=== PATIENT | male | born 1975 | race Caucasian/White ===

== ENCOUNTER 2021-03-17 15:09 | Inpatient (IN) | payer OTHER ==
[2021-03-17] MEDS ORDERED: HYDROcodone/APAP 5-325MG 1 EACH TAB PO STA (16:28)
[2021-03-17] MEDS ORDERED: SODIUM CHLORIDE 0.9% 1,000 ML IV ONE (16:29)
[2021-03-17 16:59] LABS: Anisocytosis Slight; Basophils # (A) 0.1 k/uL (0-0.2); Basophils % (A) 1 %; Eosinophils # (A) 0.2 k/uL (0-0.7); Eosinophils % (A) 2 %; HCT 43.5 % (39.0-53.0); HGB 14.6 gm/dL (13.0-17.5); Lymphocytes # (A) 2.1 k/uL (1.0-4.8); Lymphocytes % (A) 27 %; MCH 28.6 pg (25.0-35.0); MCHC 33.5 g/dL (31.0-37.0); MCV 85.4 fL (80.0-100.0); Mean Platelet Volume 7.5; Monocytes # (A) 0.4 k/uL (0-1.0); Monocytes % (A) 5 %; Neutrophils # (A) 5.2 k/uL (1.3-7.7); Neutrophils % (A) 65 %; Platelet Count 202 k/uL (150-450); RBC 5.09 m/uL (4.30-5.90); RDW 17.9 % (11.5-15.5)
[2021-03-17 17:15] LABS: ALT 19 U/L (4-49); AST 55 U/L (17-59); African American GFR (CKD) >90 (>60 ml/min/1.73 sqM); Albumin 4.3 g/dL (3.5-5.0); Alkaline Phosphatase 200 U/L (38-126); Anion Gap 13 mmol/L; Blood Urea Nitrogen 6 mg/dL (9-20); Calcium 9.3 mg/dL (8.4-10.2); Carbon Dioxide 26 mmol/L (22-30); Chloride 103 mmol/L (98-107); Glucose 107 mg/dL (74-99); Non-African American GFR(CKD) >90 (>60 ml/min/1.73 sqM); Potassium 4.4 mmol/L (3.5-5.1); Sodium 142 mmol/L (137-145); Total Bilirubin 0.4 mg/dL (0.2-1.3); Total Protein 8.2 g/dL (6.3-8.2)
[2021-03-17 17:35] LABS: Alcohol 376 mg/dL
[2021-03-17] MEDS ORDERED: ONDANSETRON 4 MG/2 ML VIAL IVP PRN (17:53)
[2021-03-17] MEDS ORDERED: NALOXONE 0.4 MG/ML 1 ML VIAL IV PRN ×2 (17:53→18:07)
--- NOTE | 2021-03-17 18:01 | ED ---
Alcohol HPI - General Chief Complaint: Alcohol Stated Complaint: ETOH/Pain Time Seen by Provider: 03/17/21 15:20 Source: patient, EMS, RN notes reviewed Mode of arrival: EMS Limitations: altered mental status - History of Present Illness Initial Comments: 45-year-old white male presents to the emergency room after trying to get into [facility] for alcohol detox, being turned away with alcohol level of 0.19. Patient states he normally drinks 3 fifths of vodka a day. States his last drink was this morning. Patient c/o Chronic Pain. States 2 Weeks Ago He Fell Hitting His Head, sustaining a Laceration to forehead, Was Repaired with Glue but Cannot Remember Which Hospital He Was at. He Also Sustained a Right Foot Injury Told Was Bruised. There Is Some Bruising Noted to the top of his foot. Patient initially stated that he does have seizures when he tries to detox but during reevaluation patient states he has never had seizures. MD Complaint: alcohol intoxication (Intoxicated), desires rehab Last Drink: unknown (stated last night but told nurse this morning) Recent Trauma: No Associated Symptoms: other (Chronic pain right foot) Treatments Prior to Arrival: none Chronic Alcohol Use: Yes (3 fifth's a day of vodka) - Related Data Home Medications Medication Instructions Recorded Confirmed No Known Home Medications 03/17/21 03/17/21 Allergies Allergy/AdvReac Type Severity Reaction Status Date / Time No Known Allergies Allergy Verified 03/17/21 16:42 Review of Systems ROS Statement: Those systems with pertinent positive or pertinent negative responses have been documented in the HPI. ROS Other: All systems not noted in ROS Statement are negative. Past Medical History Additional Past Medical History / Comment(s): Right Foot injury 03/02/21 History of Any Multi-Drug Resistant Organisms: None Reported Additional Past Surgical History / Comment(s): hx of chest tube Past Psychological History: PTSD Smoking Status: Current every day smoker Past Alcohol Use History: Abuse, Daily, Heavy Past Drug Use History: Marijuana General Exam Limitations: altered mental status (Acute alcohol intoxication) General appearance: alert, in no apparent distress, appears intoxicated Head exam: Present: atraumatic, normocephalic, normal inspection Eye exam: Present: normal appearance, PERRL, EOMI. Absent: scleral icterus, conjunctival injection, periorbital swelling ENT exam: Present: normal exam, normal oropharynx, mucous membranes moist Neck exam: Present: normal inspection, full ROM. Absent: tenderness, meningismus, lymphadenopathy, thyromegaly Respiratory exam: Present: normal lung sounds bilaterally, chest wall tenderness (Left lower anterior rib deformity). Absent: respiratory distress, wheezes, rales, rhonchi, stridor, decreased breath sounds Cardiovascular Exam: Present: regular rate, normal rhythm, normal heart sounds. Absent: systolic murmur, diastolic murmur, rubs, gallop, clicks GI/Abdominal exam: Present: soft, normal bowel sounds. Absent: distended, tenderness, guarding, rebound, rigid, mass, pulsatile mass Rectal exam: Present: deferred Extremities exam: Present: normal inspection, full ROM, normal capillary refill. Absent: tenderness, pedal edema, joint swelling, calf tenderness Right Foot/Toe exam: Present: tenderness, ecchymosis. Absent: full ROM, swelling, abrasion, laceration Back exam: Present: normal inspection, full ROM. Absent: tenderness, CVA tenderness (R), CVA tenderness (L), muscle spasm, rash noted Neurological exam: Present: alert, oriented X3, CN II-XII intact Psychiatric exam: Present: normal affect, normal mood Skin exam: Present: warm, dry, intact, normal color. Absent: rash, cyanosis, diaphoretic, mottled Course Vital Signs 03/17/21 15:12 Temperature 97.4 F L Pulse Rate 84 Respiratory 18 Rate Blood Pressure 122/98 O2 Sat by Pulse 98 Oximetry Procedures - Lynch Protocol (Time Out) Nurse: Kostas Granados Medical Decision Making - Medical Decision Making Patient with alcohol level .376, other labs are within limits. Patient will be admitted for alcohol intoxication. Case discussed with Dr. Wells who is agreeable. - Lab Data Result diagrams: 03/17/21 16:40 03/17/21 16:40 Lab Results 03/17/21 03/17/21 Range/Units 16:40 16:40 WBC 8.0 (3.8-10.6) k/uL RBC 5.09 (4.30-5.90) m/uL Hgb 14.6 (13.0-17.5) gm/dL Hct 43.5 (39.0-53.0) % MCV 85.4 (80.0-100.0) fL MCH 28.6 (25.0-35.0) pg MCHC 33.5 (31.0-37.0) g/dL RDW 17.9 H (11.5-15.5) % Plt Count 202 (150-450) k/uL MPV 7.5 Neutrophils % 65 % Lymphocytes % 27 % Monocytes % 5 % Eosinophils % 2 % Basophils % 1 % Neutrophils # 5.2 (1.3-7.7) k/uL Lymphocytes # 2.1 (1.0-4.8) k/uL Monocytes # 0.4 (0-1.0) k/uL Eosinophils # 0.2 (0-0.7) k/uL Basophils # 0.1 (0-0.2) k/uL Anisocytosis Slight Sodium 142 (137-145) mmol/L Potassium 4.4 (3.5-5.1) mmol/L Chloride 103 (98-107) mmol/L Carbon Dioxide 26 (22-30) mmol/L Anion Gap 13 mmol/L BUN 6 L (9-20) mg/dL Creatinine 0.59 L (0.66-1.25) mg/dL Est GFR (CKD-EPI)AfAm >90 (>60 ml/min/1.73 sqM) Est GFR (CKD-EPI)NonAf >90 (>60 ml/min/1.73 sqM) Glucose 107 H (74-99) mg/dL Calcium 9.3 (8.4-10.2) mg/dL Total Bilirubin 0.4 (0.2-1.3) mg/dL AST 55 (17-59) U/L ALT 19 (4-49) U/L Alkaline Phosphatase 200 H (38-126) U/L Total Protein 8.2 (6.3-8.2) g/dL Albumin 4.3 (3.5-5.0) g/dL Serum Alcohol 376 H* mg/dL Disposition Clinical Impression: Alcoholic intoxication Disposition: HOME SELF-CARE Instructions (If sedation given, give patient instructions): Alcohol Intoxication (ED) Is patient prescribed a controlled substance at d/c from ED?: No Referrals: None,Stated [Primary Care Provider] - 1-2 days Decision Date: 03/17/21 Decision Time: 18:06
[2021-03-17] MEDS: HYDROcodone/APAP 5-325MG 1 EACH TAB PO PRN (18:05)
--- NOTE | 2021-03-17 18:25 | P.HPIM ---
History of Present Illness H&P Date: 03/17/21 Chief Complaint: Alcohol intoxication, right ankle and rib pain 45-year-old man with medical history of alcohol abuse disorder, chronic pain presented for help with alcohol withdrawal. Patient says that he drinks 3 5ths of vodka per day, 1 week ago had a fall resulting in right ankle and rib pain. He wants to remain sober, however, he was turned away from [facility] due to acute alcohol intoxication. Upon arrival his alcohol level was 376. He says that he has gone through withdrawal before but cannot remember if he ever had a seizure or visual hallucinations. He reports significant pain in his ankle and his right ribs due to a fall he sustained more than 1 week ago. He says he has had this evaluated before with an x-ray and was told that it was bruised and then was told it was strained. He reports tremors, anxiety, pain. He denies fevers, chills, nausea, vomiting, chest pain, shortness of breath, dyspnea, cough, abdominal pain, dysuria, dyschezia, diarrhea, constipation, numbness/weakness of extremities. His labs and imaging were reviewed. His vital signs are stable in the ER. Medicine will let this patient for alcohol intoxication observation as well as to monitor for signs of alcohol withdrawal. Review of Systems All Systems reviewed and pertinent positives and negatives noted in HPI, all other symptoms are negative Past Medical History Additional Past Medical History / Comment(s): Right Foot injury 03/02/21 History of Any Multi-Drug Resistant Organisms: None Reported Additional Past Surgical History / Comment(s): hx of chest tube Past Psychological History: PTSD Smoking Status: Current every day smoker Past Alcohol Use History: Abuse, Daily, Heavy Past Drug Use History: Marijuana Medications and Allergies Home Medications Medication Instructions Recorded Confirmed Type No Known Home Medications 03/17/21 03/17/21 History Allergies Allergy/AdvReac Type Severity Reaction Status Date / Time No Known Allergies Allergy Verified 03/17/21 16:42 Physical Exam Osteopathic Statement: *. No significant issues noted on an osteopathic structural exam other than those noted in the History and Physical/Consult. Vitals: Vital Signs Temp Pulse Resp BP Pulse Ox 03/17/21 15:12 97.4 F L 84 18 122/98 98 Intake and Output 03/17/21 03/17/21 03/17/21 06:59 14:59 22:59 Other: Weight 72.575 kg Gen: awake, alert HEENT: normocephalic, atraumatic, good hearing acuity, moist mucous membranes Resp: good air exchange, breathing comfortably with no accessory muscle use, clear to auscultation bilaterally without wheezes or crackles CVS: good distal perfusion x 4, regular rate and rhythm without murmurs GI: soft, NTTP, ND : no SPT, no CVAT, howell catheter not present MSK: no pitting edema, no clubbing, right ankle pain, right rib pain Neuro: non-focal, moving all extremities Psych: cooperative, euthymic mood Results CBC & Chem 7: 03/17/21 16:40 03/17/21 16:40 Labs: Abnormal Lab Results - Last 24 Hours (Table) 03/17/21 03/17/21 Range/Units 16:40 16:40 RDW 17.9 H (11.5-15.5) % BUN 6 L (9-20) mg/dL Creatinine 0.59 L (0.66-1.25) mg/dL Glucose 107 H (74-99) mg/dL Alkaline Phosphatase 200 H (38-126) U/L Serum Alcohol 376 H* mg/dL Assessment and Plan Assessment: Alcohol intoxication Alcohol use disorder, dependence Alcohol withdrawal syndrome -Admit to observation, telemetry -Banana bag -Daily thiamine, folate, multivitamin -Alcohol cessation counseling -CIWA protocol -Ativan when necessary -Regular diet Right ankle and rib pain -We'll not repeat x-rays given he's had them done twice per his history, and neither time was told he had broken bones -[place] when necessary DVT prophylaxis is not indicated at this time Patient is a full code
[2021-03-17] MEDS: SODIUM CHLORIDE 0.9% 1,000 ML IV SCH (18:39)
[2021-03-17] MEDS: 1: MVI, ADULT NO.4 WITH VIT K 10 ML, THIAMINE 100 MG, FOLIC ACID 1 MG in SODIUM CHLORIDE IV SCH ×4 (18:47)
[2021-03-17] MEDS: LORazepam 2 MG/ML INJ IV PRN (21:45)
[2021-03-18] MEDS: LORazepam 2 MG/ML INJ IV PRN ×7 (01:07→22:22)
[2021-03-18] MEDS: SODIUM CHLORIDE 0.9% 1,000 ML IV SCH ×2 (02:53→14:50)
[2021-03-18] MEDS: 1: MVI, ADULT NO.4 WITH VIT K 10 ML, THIAMINE 100 MG, FOLIC ACID 1 MG in SODIUM CHLORIDE IV SCH ×8 (05:29→22:44)
[2021-03-18 05:58] LABS: African American GFR (CKD) >90 (>60 ml/min/1.73 sqM); Anion Gap 5 mmol/L; Anisocytosis Slight; Basophils % (A) 1 %; Blood Urea Nitrogen 6 mg/dL (9-20); Calcium 7.8 mg/dL (8.4-10.2); Carbon Dioxide 26 mmol/L (22-30); Chloride 107 mmol/L (98-107); Eosinophils # (A) 0.2 k/uL (0-0.7); Eosinophils % (A) 4 %; Glucose 73 mg/dL (74-99); HCT 34.1 % (39.0-53.0); Lymphocytes % (A) 44 %; MCH 27.8 pg (25.0-35.0); MCHC 31.9 g/dL (31.0-37.0); MCV 87.3 fL (80.0-100.0); Magnesium 1.6 mg/dL (1.6-2.3); Mean Platelet Volume 7.5; Monocytes # (A) 0.3 k/uL (0-1.0); Monocytes % (A) 7 %; Neutrophils % (A) 42 %; Non-African American GFR(CKD) >90 (>60 ml/min/1.73 sqM); Platelet Count 193 k/uL (150-450); Potassium 3.9 mmol/L (3.5-5.1); RBC 3.91 m/uL (4.30-5.90); RDW 18.3 % (11.5-15.5); Sodium 138 mmol/L (137-145); WBC 4.7 k/uL (3.8-10.6)
[2021-03-18 06:06] LABS: HGB 10.9 gm/dL (13.0-17.5)
[2021-03-18] MEDS: HYDROcodone/APAP 5-325MG 1 EACH TAB PO PRN ×2 (09:01→17:48)
[2021-03-18] MEDS: NICOTINE 14MG/24HR PATCH TRANSDERM SCH (09:09)
--- NOTE | 2021-03-18 12:23 | P.PN ---
Subjective Progress Note Date: 03/18/21 No new complaints today. Continues to report nausea, tremors, pain. Rec'd ativan and norco PRN overnight for these symptoms. Objective - Vital Signs Vital signs: Vital Signs Temp 97.8 F 03/18/21 07:00 Pulse 93 03/18/21 00:29 Resp 17 03/18/21 08:00 BP 102/67 03/18/21 07:00 Pulse Ox 97 03/18/21 07:00 Intake & Output 03/17/21 03/18/21 03/18/21 18:59 06:59 18:59 Intake Total 300 Balance 300 Weight 72.575 kg 72.575 kg Intake: Oral 300 Other: # Voids 0 - Exam Gen: awake, alert HEENT: normocephalic, atraumatic, good hearing acuity, moist mucous membranes Resp: good air exchange, breathing comfortably with no accessory muscle use, clear to auscultation bilaterally without wheezes or crackles CVS: good distal perfusion x 4, regular rate and rhythm without murmurs GI: soft, NTTP, ND : no SPT, no CVAT, howell catheter not present MSK: no pitting edema, no clubbing, right ankle pain, right rib pain Neuro: non-focal, moving all extremities Psych: cooperative, euthymic mood - Labs CBC & Chem 7: 03/18/21 04:44 03/18/21 04:44 Labs: Abnormal Lab Results - Last 24 Hours (Table) 03/17/21 03/17/21 03/18/21 Range/Units 16:40 16:40 04:44 RBC 3.91 L (4.30-5.90) m/uL Hgb 10.9 L D (13.0-17.5) gm/dL Hct 34.1 L (39.0-53.0) % RDW 17.9 H 18.3 H (11.5-15.5) % BUN 6 L (9-20) mg/dL Creatinine 0.59 L (0.66-1.25) mg/dL Glucose 107 H (74-99) mg/dL Calcium (8.4-10.2) mg/dL Alkaline Phosphatase 200 H (38-126) U/L Serum Alcohol 376 H* mg/dL 03/18/21 Range/Units 04:44 RBC (4.30-5.90) m/uL Hgb (13.0-17.5) gm/dL Hct (39.0-53.0) % RDW (11.5-15.5) % BUN 6 L (9-20) mg/dL Creatinine 0.51 L (0.66-1.25) mg/dL Glucose 73 L (74-99) mg/dL Calcium 7.8 L (8.4-10.2) mg/dL Alkaline Phosphatase (38-126) U/L Serum Alcohol mg/dL Assessment and Plan Assessment: Alcohol intoxication Alcohol use disorder, dependence Alcohol withdrawal syndrome -Admit to observation, telemetry -Banana bag -Daily thiamine, folate, multivitamin -Alcohol cessation counseling -WA protocol -Ativan when necessary -Regular diet Right ankle and rib pain -We'll not repeat x-rays given he's had them done twice per his history, and neither time was told he had broken bones -[place] when necessary DVT prophylaxis is not indicated at this time Patient is a full code
[2021-03-18] MEDS: ACETAMINOPHEN TAB 325 MG TAB PO PRN (22:22)
[2021-03-19] MEDS: LORazepam 2 MG/ML INJ IV PRN ×7 (00:16→18:25)
[2021-03-19] MEDS: SODIUM CHLORIDE 0.9% 1,000 ML IV SCH ×2 (00:17→15:12)
[2021-03-19] MEDS: HYDROcodone/APAP 5-325MG 1 EACH TAB PO PRN ×5 (00:55→23:54)
[2021-03-19] MEDS: 1: MVI, ADULT NO.4 WITH VIT K 10 ML, THIAMINE 100 MG, FOLIC ACID 1 MG in SODIUM CHLORIDE IV SCH ×8 (03:30→16:09)
[2021-03-19] MEDS: NICOTINE 14MG/24HR PATCH TRANSDERM SCH (10:25)
--- NOTE | 2021-03-19 13:50 | P.PN ---
Subjective Progress Note Date: 03/19/21 pt continues to report nausea, tremors. Required multiple doses of ativan last night along with norco for pain. Objective - Vital Signs Vital signs: Vital Signs Temp 98.0 F 03/19/21 07:00 Pulse 95 03/19/21 07:00 Resp 18 03/19/21 07:00 BP 132/79 03/19/21 07:00 Pulse Ox 97 03/19/21 07:00 Intake & Output 03/18/21 03/19/21 03/19/21 18:59 06:59 18:59 Intake Total 180 Output Total 650 Balance -650 180 Intake: Oral 180 Output: Urine 650 Other: # Voids 1 1 # Bowel Movements 1 1 - Exam Gen: awake, alert HEENT: normocephalic, atraumatic, good hearing acuity, moist mucous membranes Resp: good air exchange, breathing comfortably with no accessory muscle use, clear to auscultation bilaterally without wheezes or crackles CVS: good distal perfusion x 4, regular rate and rhythm without murmurs GI: soft, NTTP, ND : no SPT, no CVAT, howell catheter not present MSK: no pitting edema, no clubbing, right ankle pain, right rib pain Neuro: non-focal, moving all extremities Psych: cooperative, euthymic mood - Labs CBC & Chem 7: 03/18/21 04:44 03/18/21 04:44 Assessment and Plan Assessment: Alcohol intoxication Alcohol use disorder, dependence Alcohol withdrawal syndrome -Admit to observation, telemetry -Banana bag -Daily thiamine, folate, multivitamin -Alcohol cessation counseling -[facility] protocol + librium 50mg TID -Ativan when necessary -Regular diet Right ankle and rib pain -We'll not repeat x-rays given he's had them done twice per his history, and neither time was told he had broken bones -[place] when necessary DVT prophylaxis is not indicated at this time Patient is a full code
[2021-03-19] MEDS: chlordiazePOXIDE 25 MG CAP PO SCH ×3 (15:27→21:18)
[2021-03-20] MEDS: LORazepam 2 MG/ML INJ IV PRN ×2 (00:09→09:14)
[2021-03-20] MEDS: 1: MVI, ADULT NO.4 WITH VIT K 10 ML, THIAMINE 100 MG, FOLIC ACID 1 MG in SODIUM CHLORIDE IV SCH ×8 (05:11→09:36)
[2021-03-20] MEDS: HYDROcodone/APAP 5-325MG 1 EACH TAB PO PRN (05:12)
[2021-03-20] MEDS: chlordiazePOXIDE 25 MG CAP PO SCH ×3 (07:38→21:22)
[2021-03-20] MEDS: NICOTINE 14MG/24HR PATCH TRANSDERM SCH (07:39)
[2021-03-20] MEDS: SODIUM CHLORIDE 0.9% 1,000 ML IV SCH ×3 (09:35→21:17)
--- NOTE | 2021-03-20 13:24 | P.PN ---
Subjective Progress Note Date: 03/20/21 Pt continues to report pain and tremors, however, appears slower to respond and sedated today. Attempted to get out of bed and had a fall. No new injuries or pain reported. Objective - Vital Signs Vital signs: Vital Signs Temp 97.9 F 03/20/21 07:00 Pulse 94 03/20/21 07:00 Resp 17 03/20/21 07:29 BP 131/87 03/20/21 07:00 Pulse Ox 98 03/20/21 07:00 Intake & Output 03/19/21 03/20/21 03/20/21 18:59 06:59 18:59 Intake Total 1191.2 Output Total 1200 1450 Balance -8.8 -1450 Intake: Intake, IV Titration 1011.2 Amount Mvi, Adult No.4 with Vit 1011.2 K 10 ml Thiamine 100 mg Folic Acid 1 mg In Sodium Chloride 0.9% 1,000 ml @ 100 mls/hr IV .BY DURATION EVIE Rx#: [id number] Oral 180 Output: Urine 1200 1450 Other: Voiding Method Urinal # Voids 3 3 - Exam Gen: awake, alert HEENT: normocephalic, atraumatic, good hearing acuity, moist mucous membranes Resp: good air exchange, breathing comfortably with no accessory muscle use, clear to auscultation bilaterally without wheezes or crackles CVS: good distal perfusion x 4, regular rate and rhythm without murmurs GI: soft, NTTP, ND : no SPT, no CVAT, howell catheter not present MSK: no pitting edema, no clubbing, right ankle pain, right rib pain Neuro: non-focal, moving all extremities Psych: cooperative, euthymic mood - Labs CBC & Chem 7: 03/18/21 04:44 03/18/21 04:44 Assessment and Plan Assessment: Alcohol intoxication Alcohol use disorder, dependence Alcohol withdrawal syndrome -Admit to observation, telemetry -Banana bag x 1 -Daily thiamine, folate, multivitamin -Alcohol cessation counseling -CIWA protocol + librium 25mg TID (downtitrated from 50mg TID on 03/20) -Ativan when necessary -Regular diet Right ankle and rib pain -We'll not repeat x-rays given he's had them done twice per his history, and neither time was told he had broken bones -[place] when necessary --> went from q4h PRN dosing to q6h PRN dosing, please alternate with tylenol DVT prophylaxis is not indicated at this time Patient is a full code
[2021-03-20] MEDS: LOPERAMIDE 2 MG CAP PO PRN (16:13)
[2021-03-20] MEDS: ACETAMINOPHEN TAB 325 MG TAB PO PRN (21:22)
[2021-03-21] MEDS: SODIUM CHLORIDE 0.9% 1,000 ML IV SCH ×3 (02:38→20:47)
[2021-03-21] MEDS: HYDROcodone/APAP 5-325MG 1 EACH TAB PO PRN (02:56)
[2021-03-21] MEDS: ACETAMINOPHEN TAB 325 MG TAB PO PRN (02:56)
[2021-03-21] MEDS: LOPERAMIDE 2 MG CAP PO PRN (02:56)
[2021-03-21] MEDS: LORazepam 2 MG/ML INJ IV PRN ×2 (04:04→07:39)
[2021-03-21] MEDS: NICOTINE 14MG/24HR PATCH TRANSDERM SCH (07:36)
[2021-03-21] MEDS: chlordiazePOXIDE 25 MG CAP PO SCH (07:36)
--- NOTE | 2021-03-21 18:53 | P.PN ---
Subjective Progress Note Date: 03/21/21 (isidroe charting seen at 1115) Principal diagnosis: intoxication Patient is a 45-year-old male with alcohol abuse disorder, chronic pain, and tobacco abuse who presented for help with alcohol withdrawal. He was turned away from [place] secondary to acute alcohol intoxication when he presented there was directed to the emergency department. On arrival his vital signs were within normal limits. Laboratory analysis is unremarkable except for a serum alcohol level of 376. He was admitted for further monitoring. He was started on CIWA protocol, thiamine, folic acid. He continued to complain of ankle pain, rib pain, arm pain, side pain all which he states are chronic after a fall 4 months ago. Patient had been requesting as needed Ativan and [place]. He had a fall with a known abrasions. Patient has been requesting scheduled [place] and Ativan per nursing. Patient's external medication record was reviewed and it appears that he takes oxycodone 10 mg 3 times daily on a chronic basis. He does verify that he gets this filled by Maciej Quintana nurse practitioner out of [facility]. We discussed that he will not be getting scheduled Ativan and the nurses will continue to assess him for withdrawal symptoms. We did discuss that I'll resume his oxycodone at 5 mg to ensure he does not develop narcotic withdrawal. I suggested that he get help for his narcotic addiction as he should note the requiring continued high-dose narcotic medications for a fall without definitive injury that happened 4 months ago. General: non toxic, no distress, appears at stated age Derm: warm, dry Head: atraumatic, normocephalic, symmetric Eyes: EOMI, no lid lag, anicteric sclera Mouth: no lip lesion, mucus membranes moist Cardiovascular: S1S2 reg, no murmur, positive posterior tibial pulse bilateral, Lungs: CTA bilateral, no rhonchi, no rales , no accessory muscle use Abdominal: soft, nontender to palpation, no guarding, no appreciable organomegaly Ext: no gross muscle atrophy, no edema, no contractures Neuro: CN II-XI grossly intact, no focal neuro deficits Psych: Alert, oriented, appropriate affect ETOH intoxication with subsequent withdrawal - Decrease librium - CIWA - Thiamine, folic acid - Alcohol withdrawal Chronic pain X 4 months - resume home Oxy but at 5 mg - patient informed that he will not be getting narcotics from [place] on discharge and I suggest he follow-up with his primary care provider Tobacco abuse - cessation - nicotine replacement DVT prophylaxis: SCDs Discussed with: Patient, nursing Anticipated discharge: in AM Anticipated discharge place: home A total of 35 minutes was spent on the care of this complex patient more than 5 0% of the time was spent in counseling and care coordination. Objective - Vital Signs Vital signs: Vital Signs Temp 98.2 F 03/21/21 14:57 Pulse 63 03/21/21 14:57 Resp 17 03/21/21 14:57 BP 121/81 03/21/21 14:57 Pulse Ox 100 03/21/21 14:57 Intake & Output 03/20/21 03/21/21 03/21/21 18:59 06:59 18:59 Intake Total 100 Output Total 1850 400 475 Balance -1850 -400 -375 Intake: Oral 100 Output: Urine 1850 400 475 Other: Voiding Method Urinal # Voids 2 1 # Bowel Movements 1 1 1 - Labs CBC & Chem 7: 03/18/21 04:44 03/18/21 04:44
[2021-03-21 21:07] VITALS: RESP 16
[2021-03-22 07:43] VITALS: BP 131/95; PULSE 88; TEMP 98.3
[2021-03-22] MEDS: NICOTINE 14MG/24HR PATCH TRANSDERM SCH (07:53)
[2021-03-22] MEDS: HYDROcodone/APAP 5-325MG 1 EACH TAB PO PRN (10:55)
--- NOTE | 2021-03-22 13:40 | P.DS ---
Providers Date of admission: 03/20/21 05:58 Expected date of discharge: 03/22/21 Attending physician: Maurisio Ho MD Primary care physician: Stated None Hospital Course: Discharge Diagnosis: ETOH intoxication with subsequent withdrawal Chronic pain X 4 months after a fall Tobacco abuse Hospital Course: Patient is a 45-year-old male with alcohol abuse disorder, chronic pain, and tobacco abuse who presented for help with alcohol withdrawal. He was turned away from [place] secondary to acute alcohol intoxication when he presented there was directed to the emergency department. On arrival his vital signs were within normal limits. Laboratory analysis is unremarkable except for a serum alcohol level of 376. He was admitted for further monitoring. He was started on CIWA protocol, thiamine, folic acid. He continued to complain of ankle pain, rib pain, arm pain, side pain all which he states are chronic after a fall 4 months ago. Patient had been requesting Ativan scheduled and [place]. He had a fall with a known abrasions. Patient's external medication record was reviewed and it appears that he takes oxycodone 10 mg 3 times daily on a chronic basis. He does verify that he gets this filled by Maciej Albright nurse practitioner out of [facility]. We discussed that he will not be getting scheduled Ativan and the nurses will continue to assess him for withdrawal symptoms. We did resume his oxycodone but at 5 mg to ensure he does not develop narcotic withdrawal. I suggested that he get help for his narcotic addiction as it should be noted that requiring continued high-dose narcotic medications for a fall without definitive injury that happened 4 months ago. He no longer required IV ativan and he was determined stable for discharge home. I suggested that he get involved outpatient alcohol addiction program. He will follow-up with Mr. Albright in 2-3 days. Patient seen and examined at bedside. He denies tremors, nausea, vomiting, hallucinations. We discussed plan as dictated above. Vital signs reviewed and stable. General: non toxic, no distress, appears older than stated age Derm: warm, dry Head: atraumatic, normocephalic, symmetric Eyes: EOMI, no lid lag, anicteric sclera Mouth: no lip lesion, mucus membranes moist Cardiovascular: S1S2 reg, no murmur, positive posterior tibial pulse bilateral, Lungs: CTA bilateral, no rhonchi, no rales , no accessory muscle use Abdominal: soft, nontender to palpation, no guarding, no appreciable organomegaly Ext: no gross muscle atrophy, no edema, no contractures Neuro: CN II-XI grossly intact, no focal neuro deficits Psych: Alert, oriented, appropriate affect A total of 25 minutes of time were spent preparing this complex discharge summary . Patient Condition at Discharge: Fair Plan - Discharge Summary Discharge Rx Participant: Yes New Discharge Prescriptions: No Action No Known Home Medications Discharge Medication List No Known Home Medications 03/17/21 [History] Follow up Appointment(s)/Referral(s): None,Stated [Primary Care Provider] - 1-2 days Patient Instructions/Handouts: Alcohol Intoxication (ED) Activity/Diet/Wound Care/Special Instructions: Activity: as tolerated Diet: regular Special Instructions: Follow up with Maciej Albright NP for your chronic pain Discharge Disposition: HOME SELF-CARE
== END 2021-03-22 15:48 | disposition home or self-care (01) | DRG 897 ==
LOC: EC 15:09 → 6NMEDSUR 22:26 → OBSVTOIN 03-20 05:58
PROVIDERS: ADMIT Internal Medicine; ATTEND Internal Medicine
DX: F10.239 Alcohol dependence with withdrawal, unspecified (principal); G89.29 Other chronic pain; Z20.828 Contact with and (suspected) exposure to other viral communicable diseases; F17.210 Nicotine dependence, cigarettes, uncomplicated; W19.XXXA Unspecified fall, initial encounter; Y90.8 Blood alcohol level of 240 mg/100 ml or more; F43.10 Post-traumatic stress disorder, unspecified; M25.571 Pain in right ankle and joints of right foot; R07.81 Pleurodynia
CPT/HCPCS: 36415; 80048; 80053; 80320; 82075; 83735; 85025; 87635; 99285